=== PATIENT | female | born 1930 | race Caucasian/White ===

== ENCOUNTER 2018-09-23 11:13 | Inpatient (IN) ==
[2018-09-23] MEDS ORDERED: Ondansetron 4 MG/2 ML VIAL IVP ONE (11:19)
[2018-09-23] MEDS ORDERED: Isovue-370 500 ML INFUS..BTL IV ONE (11:34)
[2018-09-23] MEDS ORDERED: 0.9 % Sodium Chloride 1,000 ML IVC ONE (11:34)
--- NOTE | 2018-09-23 11:40 | Emergency Department Note ---
Disposition Clinical Impression: Endoleak of aortic graft Sepsis Qualifiers: Sepsis type: sepsis due to unspecified organism Qualified Code(s): A41.9 - Sepsis, unspecified organism Postoperative seroma Qualifiers: Surgical complication system/body Area: circulatory system Procedure type: ot her circulatory Qualified Code(s): I97.648 - Postprocedural seroma of a cir culatory system organ or structure following other circulatory system procedure Disposition: Admitted As Inpatient Condition: Good Referrals: Deng Munoz Jr, MD [Primary Care Provider] - Forms: ED Satisfaction Letter, Work/School Release Time of Disposition: 15:17 General Adult HPI - General Chief complaint: ED Abdominal Pain Stated complaint: Abdominal Pain Time Seen by Provider: 09/23/18 11:16 Source: patient, family Mode of arrival: ambulatory Limitations: no limitations Nursing Notes Reviewed: Yes Vital Signs Reviewed: Yes - History of Present Illness HPI Narrative: 87 year old female presents to the ED with complaints of abdominal pain that is ventral and states that she most recently had a AAA repair per Dr. Graham on July 10 and has bene doing well until the past couple of week and has dveloepd midline abodminal pain that radiates into the lower abodmen. Today she develoepd N/V which was NBNB. Dee states that this si af rist time occurance and when EMS arrived she had a temperaature of 101F, and she has a low grade 100F oral tmep which makes her concerning for SIRS. Ian denies diarrhea or constipation, cough, UTI symptoms or any bloody in her stool or urine. PAstinet state that is her generalized pain that is crampy in nature. Dee also had a fall yesterday but did not injure her head or neck and did have LOC and state she does not have injuries of concern. Dee denies chest pain at this time. - Related Data Home Medications Medication Instructions Recorded Confirmed Atorvastatin [Lipitor] 10 mg PO HS #0 09/03/15 09/23/18 Lisinopril [Zestril] 10 mg PO DAILY 11/14/17 09/23/18 Metoprolol [Lopressor] 25 mg PO BID 11/14/17 09/23/18 Acetaminophen/Diphenhydramine 1 tab PO HS PRN 07/10/18 09/23/18 [Acetaminophen Pm Caplet] Aspirin Enteric Coated [Aspirin EC] 81 mg PO DAILY 07/10/18 09/23/18 Ibuprofen [Motrin] 400 - 600 mg PO Q6HR PRN 07/10/18 09/23/18 Allergies Allergy/AdvReac Type Severity Reaction Status Date / Time No Known Allergies Allergy Verified 07/10/18 06:37 Constitutional: Denies: fever, chills, weakness, weight change Eyes: Denies: eye pain, eye discharge, vision change ENT ED: Denies: ear pain, throat pain, dental pain, hearing loss, epistaxis, congestion, dysphagia Cardiovascular: Denies: chest pain, palpitations, dyspnea on exertion, edema, syncope Respiratory: Denies: cough, dyspnea, wheezes, hemoptysis, stridor Gastrointestinal: Reports: abdominal pain, nausea, vomiting. Denies: diarrhea, constipation, hematemesis, melena, hematochezia Genitourinary: Denies: dysuria, frequency, hematuria, discharge Musculoskeletal: Denies: back pain, neck pain, arthralgia, myalgia Integumentary: Denies: rash, abrasion, lesions Neurological: Denies: headache, weakness, numbness, paresthesias, confusion, abnormal gait, vertigo Psychiatric: Denies: anxiety, depression, suicidal thoughts, homicidal thoughts, auditory hallucinations, visual hallucinations Endocrine: Denies: fatigue Hematological/Lymphatic: Denies: easy bleeding, easy bruising Allergic/Immunologic: Denies: facial swelling, urticaria Past Medical History - Past Medical History Medical history: Reports: arthritis, hyperlipidemia, hypertension Surgical history: Reports: no surgical history, hip replacement Psychiatric history: Reports: no psych history [employer]IST history: Reports: no [employer]ANG[employer] SPECIALIST history - Social History Smoking Status: Never smoker Smokeless Tobacco Status: No Alcohol use: Reports: none Drug use: Reports: none Physical Exam - General Limitations: no limitations General appearance: alert, in no apparent distress - Head Head exam: atraumatic, normocephalic, normal inspection - Eye Eye exam: Present: normal appearance, PERRL, EOMI - Expanded Eye Exam Pupils: Bilateral: reactive - ENT ENT exam: normal exam, normal oropharynx, mucous membranes moist - Expanded ENT Exam External ear exam: Present: normal external inspection Mouth exam: Present: normal external inspection Teeth exam: Present: normal inspection Throat exam: Present: normal inspection - Neck Neck exam: Present: normal inspection, full ROM, trachea midline - Chest Chest inspection: Present: normal inspection, symmetric chest wall rise - Respiratory Respiratory exam: Present: normal lung sounds bilaterally - Cardiovascular Cardiovascular exam: Present: regular rate, normal rhythm, normal heart sounds - Abdominal Exam Abdominal exam: Present: soft, tenderness. Absent: Non-Tender, distention, guarding, rebound, rigidity Abdominal tenderness: Present: diffuse, mild - Extremities Exam Extremities exam: Present: normal inspection, full ROM. Absent: tenderness, pedal edema - Expanded Upper Extremity Exam Shoulder exam: Present: normal inspection, full ROM Arm exam: Present: normal inspection, full ROM Elbow exam: Present: normal inspection, full ROM Forearm/Wrist exam: Present: normal inspection, full ROM Hand exam: Present: normal inspection, full ROM Vascular exam: Normal: capillary refill, radial pulse - Expanded Lower Extremity Exam Hip/Pelvis exam: Present: normal inspection, full ROM Upper leg exam: Present: normal inspection, full ROM Knee exam: Present: normal inspection, full ROM Lower leg exam: Present: normal inspection, full ROM Ankle exam: Present: normal inspection, full ROM Foot/toe exam: Present: normal inspection, full ROM Neurovascular/Tendon exam: Absent: motor deficit, sensory deficit, tendon deficit - Back Exam Back exam: Present: normal inspection, full ROM. Absent: tenderness - Neurological Exam Neurological exam: Present: alert, oriented X3 - Expanded Neurological Exam Patient oriented to: Present: person, place, time Coma Scale Eye Opening: Spontaneous Coma Scale Motor Response: Obeys Commands Coma Scale Verbal Response: Oriented Coma Scale Total: 15 - Psychiatric Psychiatric exam: Present: normal affect, normal mood - Skin Skin exam: Present: warm, dry, intact, normal color Course Course Narrative: we will do an abdomial workup wiht CTA abdomne but also follow through with a sepsis criteria and rule out other source of infection such as HCAP or UTI - Reevaluation(s) Reevaluation #1: updated patient on results. She likely has an infection, currenlty searching for the source. Dee has an elevated troponin which could be the result of her AAA surgery although she is not eperincing chest pain. WE are waitinginon CTA chest and abp. zosyn and vanc given for treatment Time: 12:42 - Consultations Consultation #1: discussed case with Dr. Graham who will see dee in consult to drain the seroma and possible source of infection. admit to medicine Time: 15:16 Vital Signs Temperature 100.0 F H 09/23/18 11:25 Pulse Rate 70 09/23/18 11:25 Respiratory Rate 16 09/23/18 11:25 Blood Pressure 179/69 09/23/18 11:25 O2 Sat by Pulse Oximetry 100 09/23/18 11:25 Temperature 100.0 F H 09/23/18 11:25 Pulse Rate 70 09/23/18 11:25 Respiratory Rate 16 09/23/18 11:25 Blood Pressure 179/69 09/23/18 11:25 O2 Sat by Pulse Oximetry 100 09/23/18 11:25 Oxygen Delivery Oxygen Delivery Room Air Medical Decision Making - Medical Records Medical records reviewed: Yes I reviewed the patient's medical records. - Lab Data Lab results reviewed: Yes I reviewed the patient's lab results. Result diagrams: 09/23/18 11:49 09/23/18 11:49 Lab Results 09/23/18 09/23/18 09/23/18 Range/Units 11:49 11:49 11:49 WBC 19.7 H (4.3-11.1) K/mcL RBC 3.80 L (3.82-4.97) M/mcL Hgb 11.0 L (11.5-15.4) g/dL Hct 33.3 L (35.3-44.9) % MCV 87.6 (83.0-100.0) fL MCH 28.9 (28.0-33.3) pg MCHC 33.0 (31.6-35.5) g/dL RDW 12.5 (11.5-14.5) % Plt Count 241 (140-400) K/mcL MPV 9.0 L (9.4-12.4) fL Immature Gran % 0.7 (0-4) % Seg Neutrophils % 86.2 % Lymphocytes % 3.5 % Monocytes % 9.4 % Eosinophils % 0.0 % Basophils % 0.2 % Neutrophils # 17.0 H (1.6-8.9) K/mcL Lymphocytes # 0.7 (0.6-4.6) K/mcL Monocytes # 1.9 H (0.0-1.3) K/mcL Eosinophils # 0.0 (0.0-0.6) K/mcL Basophils # 0.0 (0.0-0.2) K/mcL PT 12.6 H (9.4-12.1) Seconds INR 1.1 APTT 35.3 (26.0-36.0) Seconds Sodium 136 (136-145) mEq/L Potassium 3.8 (3.5-5.1) mEq/L Chloride 101 (98-107) mEq/L Carbon Dioxide 25 (23-29) mEq/L BUN 19 (8-23) mg/dL Creatinine 1.02 (0.60-1.20) mg/dL Est GFR ( Amer) > 60 (> 60) Est GFR (Non-Af Amer) 51 L (> 60) BUN/Creatinine Ratio 19 (6-26) Glucose 104 (70-105) mg/dL Calculated Osmolality 285 (280-300) Lactic Acid (0.5-2.2) mmol/L Calcium 9.5 (8.6-10.3) mg/dL Phosphorus (2.7-4.5) mg/dL Magnesium (1.6-2.6) mg/dL Total Bilirubin 0.8 (0.3-1.0) mg/dL Direct Bilirubin 0.2 (0.0-0.2) mg/dL Indirect Bilirubin 0.6 (0.0-1.2) mg/dL AST 17 (13-39) Units/L ALT 8 (7-52) Units/L Alkaline Phosphatase 75 (34-104) Units/L Troponin I 0.38 H* (< 0.04) ng/mL Serum Total Protein 7.5 (6.4-8.9) g/dL Albumin 3.7 (3.5-5.7) g/dL Globulin 3.8 H (2.4-3.5) g/dL Albumin/Globulin Ratio 1.0 L (1.1-2.2) Lipase 10 L (11-82) Units/L Urine Color (Yellow) Urine Clarity (Clear) Urine pH (5.0-8.0) pH Units Ur Specific [place] (1.010-1.025) Urine Protein (Neg-Trace) mg/dL Urine Glucose (UA) (Normal) mg/dL Urine Ketones (Negative) mg/dL Urine Blood (Negative) Urine Nitrite (Negative) Urine Bilirubin (Negative) Urine Urobilinogen (Normal) mg/dL Ur Leukocyte Esterase (Negative) Urine Microscopic RBC (0-3) per hpf Urine Microscopic WBC (0-3) per hpf Ur Squamous Epith Cells (None-Few) per lpf Urine Bacteria (None-Few) per hpf Hyaline Casts (None-Few) per lpf Ur Culture Indicated? (NO) 09/23/18 09/23/18 09/23/18 Range/Units 11:49 11:49 14:20 WBC (4.3-11.1) K/mcL RBC (3.82-4.97) M/mcL Hgb (11.5-15.4) g/dL Hct (35.3-44.9) % MCV (83.0-100.0) fL MCH (28.0-33.3) pg MCHC (31.6-35.5) g/dL RDW (11.5-14.5) % Plt Count (140-400) K/mcL MPV (9.4-12.4) fL Immature Gran % (0-4) % Seg Neutrophils % % Lymphocytes % % Monocytes % % Eosinophils % % Basophils % % Neutrophils # (1.6-8.9) K/mcL Lymphocytes # (0.6-4.6) K/mcL Monocytes # (0.0-1.3) K/mcL Eosinophils # (0.0-0.6) K/mcL Basophils # (0.0-0.2) K/mcL PT (9.4-12.1) Seconds INR APTT (26.0-36.0) Seconds Sodium (136-145) mEq/L Potassium (3.5-5.1) mEq/L Chloride (98-107) mEq/L Carbon Dioxide (23-29) mEq/L BUN (8-23) mg/dL Creatinine (0.60-1.20) mg/dL Est GFR ( Amer) (> 60) Est GFR (Non-Af Amer) (> 60) BUN/Creatinine Ratio (6-26) Glucose (70-105) mg/dL Calculated Osmolality (280-300) Lactic Acid 1.0 (0.5-2.2) mmol/L Calcium (8.6-10.3) mg/dL Phosphorus 2.7 (2.7-4.5) mg/dL Magnesium 1.9 (1.6-2.6) mg/dL Total Bilirubin (0.3-1.0) mg/dL Direct Bilirubin (0.0-0.2) mg/dL Indirect Bilirubin (0.0-1.2) mg/dL AST (13-39) Units/L ALT (7-52) Units/L Alkaline Phosphatase (34-104) Units/L Troponin I (< 0.04) ng/mL Serum Total Protein (6.4-8.9) g/dL Albumin (3.5-5.7) g/dL Globulin (2.4-3.5) g/dL Albumin/Globulin Ratio (1.1-2.2) Lipase (11-82) Units/L Urine Color Yellow (Yellow) Urine Clarity Clear (Clear) Urine pH 6.5 (5.0-8.0) pH Units Ur Specific [place] 1.029 H (1.010-1.025) Urine Protein 30 H (Neg-Trace) mg/dL Urine Glucose (UA) Normal (Normal) mg/dL Urine Ketones Trace H (Negative) mg/dL Urine Blood Trace H (Negative) Urine Nitrite Negative (Negative) Urine Bilirubin Negative (Negative) Urine Urobilinogen Normal (Normal) mg/dL Ur Leukocyte Esterase Moderate H (Negative) Urine Microscopic RBC 5-15 H (0-3) per hpf Urine Microscopic WBC 5-15 H (0-3) per hpf Ur Squamous Epith Cells Many H (None-Few) per lpf Urine Bacteria Few (None-Few) per hpf Hyaline Casts None Seen (None-Few) per lpf Ur Culture Indicated? NO. A (NO) - Radiology Data Radiology results reviewed: Yes I reviewed the patient's radiology results. - EKG Data EKG #1 EKG attestation: Yes I reviewed and interpreted this EKG. EKG results narrative: NSR with raet o 70. NO STEMI. normla intervals. no change from 09/03/18.
[2018-09-23 12:15] LABS: Basophils % 0.2 %; Hematocrit 33.3 % (35.3-44.9); Immature Granulocytes % 0.7 % (0-4); Lymphocytes # 0.7 K/mcL (0.6-4.6); Lymphocytes % 3.5 %; Mean Corpuscular Hemoglobin 28.9 pg (28.0-33.3); Mean Corpuscular Volume 87.6 fL (83.0-100.0); Monocytes # 1.9 K/mcL (0.0-1.3); Monocytes % 9.4 %; Platelet Count 241 K/mcL (140-400); Red Cell Distribution Width 12.5 % (11.5-14.5); Segmented Neutrophils % 86.2 %
[2018-09-23 12:24] LABS: INR 1.1; Prothrombin Time 12.6 Seconds (9.4-12.1)
[2018-09-23 12:27] LABS: Activated Partial Thrombo Time 35.3 Seconds (26.0-36.0); Troponin I 0.38 ng/mL (< 0.04)
[2018-09-23] MEDS ORDERED: Piperacillin/Tazobactam 3.375 GM in 0.9 % Sodium Chloride Mini Bag 100 ML IVPB ONE (12:29)
[2018-09-23 12:34] LABS: Magnesium 1.9 mg/dL (1.6-2.6); Phosphorous 2.7 mg/dL (2.7-4.5)
[2018-09-23 12:36] LABS: Alanine Aminotransferase 8 Units/L (7-52); Albumin 3.7 g/dL (3.5-5.7); Alkaline Phosphatase 75 Units/L (34-104); Aspartate Amino Transferase 17 Units/L (13-39); BUN/Creatinine Ratio 19 (6-26); Bilirubin,Direct 0.2 mg/dL (0.0-0.2); Bilirubin,Indirect 0.6 mg/dL (0.0-1.2); Bilirubin,Total 0.8 mg/dL (0.3-1.0); Blood Urea Nitrogen 19 mg/dL (8-23); Calcium 9.5 mg/dL (8.6-10.3); Carbon Dioxide 25 mEq/L (23-29); Chloride 101 mEq/L (98-107); Globulin 3.8 g/dL (2.4-3.5); Glucose 104 mg/dL (70-105); Lipase 10 Units/L (11-82); Osmolality,Calculated 285 (280-300); Potassium 3.8 mEq/L (3.5-5.1); Sodium 136 mEq/L (136-145); Total Protein 7.5 g/dL (6.4-8.9); eGFR For Non-African Americans 51 (> 60)
[2018-09-23 14:30] LABS: Bilirubin,Urine Negative (Negative); Blood,Urine Trace (Negative); Clarity,Urine Clear (Clear); Color,Urine Yellow (Yellow); Glucose,Urine (UA) Normal (Normal); Ketones,Urine Trace mg/dL (Negative); Leukocyte Esterase,Urine Moderate (Negative); Nitrite,Urine Negative (Negative); PH,Urine 6.5 pH Units (5.0-8.0); Protein,Urine 30 mg/dL (Neg-Trace); Specific Gravity,Urine 1.029 (1.010-1.025); Urobilinogen,Urine Normal (Normal)
[2018-09-23 14:32] LABS: Bacteria,Urine Few per hpf (None-Few); Hyaline Casts,Urine None Seen per lpf (None-Few); Squamous Epithelial Cell,Urine Many per lpf (None-Few)
[2018-09-23] MEDS ORDERED: Naloxone 0.4 MG/ML INJ IVP PRN (17:02)
[2018-09-23] MEDS ORDERED: Ondansetron ODT 4 MG TAB.RAPDIS SL PRN (17:18)
--- NOTE | 2018-09-23 17:46 | Vascular/Endovasc Consult Note ---
Date of Encounter: 09/23/18 Time of Encounter: 17:15 Assessment and Plan (1) Postoperative seroma Current Visit: Yes Status: Chronic The patient has evidence of a postoperative left groin seroma. The fluids well- circumscribed and appears to be homogeneous in consistency on CT scan. There is no evidence of gas. Examination of the left groin reveals no significant erythema and the skin is intact. Given that the patient has an elevated white blood cell count and was extrinsic a low-grade fever we will plan for incision is then drainage of the seroma tomorrow. The risks, benefits alternatives of the procedure were discussed and all questions were answered. She expressed understanding wishes to proceed. The patient is currently on intravenous antibiotics. Qualifiers: Surgical complication system/body Area: circulatory system Procedure type: other circulatory Qualified Code(s): I97.648 - Postprocedural seroma of a circulatory system organ or structure following other circulatory system procedure (2) AAA (abdominal aortic aneurysm) Current Visit: No Status: Chronic The patient is undergone an endograft repair of abdominal aortic aneurysm in June 2018. Her endograft is patent by CT scan. She is a small type II endoleak arising from the lumbar vessels and middle sacral vessel. There is no indication for intervention and is being followed with a repeat CT scan after discharge. Qualifiers: Presence of rupture: without rupture Qualified Code(s): I71.4 - Abdominal aortic aneurysm, without rupture (3) Hypertension, essential Current Visit: No Status: Chronic The patient was counseled regarding atherosclerotic risk factor reduction. (4) Hyperlipemia, mixed Current Visit: No Status: Chronic (5) Chronic kidney disease, stage 3 Current Visit: No Status: Chronic - History of Present Illness Consult date: 09/23/18 Requesting physician: Chimoa Johnson Consult reason: Left groin seroma History of present illness: Ms. Perez is a 87 year old female with a history of chronic kidney disease, hypertension, mixed hyperlipidemia and chronic anemia. The patient has a history of an abdominal aortic aneurysm and underwent endograft repair of her aneurysm in 07/09/2018. The patient tolerated the procedure well and was discharged on postoperative day #1. She was last seen in the office on 08/22/2018. At that time she was doing well. She presented to the emergency room today with complaints of nausea vomiting abdominal pain. As part evaluation with CT angiogram of the abdomen and pelvis. The left groin fluid collection was noted to be consistent with a seroma. Vascular surgery was counseled for further evaluation. At the time of evaluation patient reports that she was feeling well until yesterday. She denies significant inguinal pain. She denies chest pain or shortness of breath. Past Med Surg Social Fam HX - Past Medical History Medical history: arthritis, hyperlipidemia, hypertension Additional medical history: AAA Psychiatric history: no psych history - Past Surgical History Surgical History: no surgical history, hip replacement Additional surgical history: right breast bx, AAA Repair - Social History Smoking Status: Never smoker Smokeless Tobacco Status: No Alcohol use: none Drug use: none - Family History Mother Living Status: Medications and Allergies RX: Atorvastatin [Lipitor] 10 mg PO HS #0 09/03/15 [History] RX: Lisinopril [Zestril] 10 mg PO DAILY 11/14/17 [History] RX: Metoprolol [Lopressor] 25 mg PO BID 11/14/17 [History] RX: Acetaminophen/Diphenhydramine [Acetaminophen Pm Caplet] 1 tab PO HS PRN 07/10/18 [History] RX: Aspirin Enteric Coated [Aspirin EC] 81 mg PO DAILY 07/10/18 [History] RX: Ibuprofen [Motrin] 400 - 600 mg PO Q6HR PRN 07/10/18 [History] Allergy/AdvReac Type Severity Reaction Status Date / Time No Known Allergies Allergy Verified 07/10/18 06:37 All Systems Review: The remainder of the systems were reviewed and are negative Exam Vital Signs, Last 4 Hours Temp Pulse Resp BP Pulse Ox 09/23/18 17:17 99.0 F 69 18 185/73 96 09/23/18 16:50 14 115/55 09/23/18 15:33 100.0 F H 64 16 143/55 95 09/23/18 15:21 64 16 143/55 95 General: Present: Conversant, No Apparent Distress HEENT: Present: Pupils equal Neck: Absent: JVD, Lymphadenopathy Cardiac: Present: Reg Rate and Rhythm, Normal S1 and S2 Lungs: Present: Normal Breath Sounds, No Wheeze, Rales, Rhonchi Neuro: Present: Alert and responsive, No focal deficits noted, Motor nerves grossly intact, Sensory nerves grossly intact Abdomen: Present: Soft, Other (No rebound or guarding) Vascular: Present: Normal capillary refill, Surgical incisions (The bilateral inguinal incisions are well-healed. There is no surrounding erythema. There is no significant induration of the left groin, and on pulsatile mass can be palpated in the left groin). Absent: Cyanosis, Edema Consult Discharge Plan - Plan Referrals: Huy Graham MD [Partnered Physician] - 10/28/18 3:30 pm Deng Munoz Jr, MD [Primary Care Provider] - 10/07/18 11:30 am
--- NOTE | 2018-09-23 18:30 | Internal Med History&Physical ---
Date of Encounter: 09/23/18 Time of Encounter: 17:30 Internal Medicine - H&P: HPI Chief complaint: Possible early sepsis. Seroma of left groin area. Admitted From: Home Plans for Post Hospital Care: Home History of present illness: The patient is an 87-year-old woman. It was today morning around 8 AM, when she vomited a few times at the time of her breakfast. About 15 minutes later she passed out, when leaning over/reaching for something. It was a very short lasting/observed by her daughter. There was no seizure activity. She was continent with of urine and stool. The patient felt very weak when regaining c onsciousness. Subsequently, her daughter called for EMS. The patient felt normal self yesterday. She has not experienced any chest pain or difficulty breathing recently. Denies coughing and wheezing. She has normal bowel movements. She has normal urination. She feels cold. However, she has not experienced any chills. Her temperature was 100.0, when checked in the emergency room after the admission. This patient had endovascular repair of AAA in our hospital on 07/10/2018. She has not experienced any complications after the surgery. She has had some feeling of fullness in her left groin for the last couple weeks. PAST MEDICAL HX: The patient has been treated for hypertension and hyperlipidemia. She had endovascular repair of AAA in our hospital in June of this year (see above). REVIEW OF SYSTEMS: All 14 organ systems were reviewed by me with the patient. Positive and perti nent negative findings are listed above. The rest of organ systems is negative. PHYSICAL EXAM: Skin: Free of rash and discoloration. Eyes: Sclera is white. There is no discharge from eyes. ENMT: Oral/pharyngeal mucosa is normal in appearance. There is no discharge from nose or ears. Respiratory: Normal breath sounds with no crackles and wheezes bilaterally. CV: Heart is regular with no gallop or murmur. GI: Abdomen is flat and soft with no palpable mass or visceromegaly. : There is no tenderness in patient's flanks bilaterally. Neuro exam: He has good strength in upper and lower extremities. He has normal eye movements. Psychiatric: He has normal affect. His thought process is appropriate to the situation. ADDITIONAL DATA: CBC shows hemoglobin of 11.0 with WBC of 19.7 thousand and platelet count of 241,000. ABG shows a random glucose of 104 and normal electrolytes. She has n ormal liver function tests. Hepatic panel/lipase are normal, too. UA shows moderate amount of leukocyte esterase; is negative for nitrite. It has 5-15 microscopic WBC in sediment. Her first creatinine was 0 point at 38; repeated 4 hours later was 0.020. EKG from the emergency showed normal sinus rhythm with no ischemia or other abnormalities. CTA vascular was obtained. It showed large fluid collection in the region of the left common femoral artery measuring 5.8 x 5.2 centimeter. They are endovascular repair of AAA seems to be stable. A/P: Syncope. Likely vasovagal. The patient may have early/developing sepsis. I am requesting lactic acid. I discussed this case with infectious diseases. We will keep this patient on IV vancomycin/IV Zosyn. She may have infected fluid in the area of left groin or some other source of infection. Blood cultures are requested. Vascular surgery consult is requested. Hypertension. Under control. We will continue Lopressor and Zestril. Hyperlipidemia. We will continue Lipitor. AAA. Got endovascular repair in June of this year. Seems to be stable at this time. Past Med Surg Social Fam HX - Past Medical History Medical history: arthritis, hyperlipidemia, hypertension Additional medical history: AAA Psychiatric history: no psych history - Past Surgical History Surgical History: no surgical history, hip replacement Additional surgical history: right breast bx, AAA Repair - Social History Smoking Status: Never smoker Smokeless Tobacco Status: No Alcohol use: none Drug use: none - Family History Mother Living Status: Internal Medicine - H&P: Meds Atorvastatin [Lipitor] 10 mg PO HS #0 09/03/15 [History] Lisinopril [Zestril] 10 mg PO DAILY 11/14/17 [History] Metoprolol [Lopressor] 25 mg PO BID 11/14/17 [History] Acetaminophen/Diphenhydramine [Acetaminophen Pm Caplet] 1 tab PO HS PRN 07/10/18 [History] Aspirin Enteric Coated [Aspirin EC] 81 mg PO DAILY 07/10/18 [History] Ibuprofen [Motrin] 400 - 600 mg PO Q6HR PRN 07/10/18 [History] Allergy/AdvReac Type Severity Reaction Status Date / Time No Known Allergies Allergy Verified 07/10/18 06:37 - Constitutional Vitals: Temp Pulse Resp BP Pulse Ox 99.0 F 69 18 185/73 96 09/23/18 17:17 09/23/18 17:17 09/23/18 17:17 09/23/18 17:17 09/23/18 17:17 General appearance: Present: A&O X 3, no acute distress, answers questions appropriately Exam: xx Internal Med - H&P Results - Labs CBC & Chem 7: 09/23/18 11:49 09/23/18 11:49 Labs: Short CBC 09/23/18 Range/Units 11:49 WBC 19.7 H (4.3-11.1) K/mcL Hgb 11.0 L (11.5-15.4) g/dL Hct 33.3 L (35.3-44.9) % Plt Count 241 (140-400) K/mcL Neutrophils # 17.0 H (1.6-8.9) K/mcL BMP 09/23/18 11:49 Sodium 136 Potassium 3.8 Chloride 101 Carbon Dioxide 25 BUN 19 Creatinine 1.02 Glucose 104 Calcium 9.5 Cardiac Enzymes 09/23/18 09/23/18 Range/Units 11:49 16:47 Troponin I 0.38 H* 0.20 H* (< 0.04) ng/mL Liver Function 09/23/18 Range/Units 11:49 Total Bilirubin 0.8 (0.3-1.0) mg/dL Direct Bilirubin 0.2 (0.0-0.2) mg/dL AST 17 (13-39) Units/L ALT 8 (7-52) Units/L Alkaline Phosphatase 75 (34-104) Units/L Albumin 3.7 (3.5-5.7) g/dL Urine 09/23/18 Range/Units 14:20 Urine Color Yellow (Yellow) Urine Clarity Clear (Clear) Urine pH 6.5 (5.0-8.0) pH Units Ur Specific [place] 1.029 H (1.010-1.025) Urine Protein 30 H (Neg-Trace) mg/dL Urine Glucose (UA) Normal (Normal) mg/dL - Impressions ITS Impressions Abdomen/Pelvis CTA 09/23/18 11:34 IMPRESSION: 1. Status post endovascular repair of the abdominal aorta. Aneurysm sac is stable since May 2018, measuring up to 5.9 cm. 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 2. Large fluid collection identified in the left groin which may represent a postoperative seroma, measuring 5.8 x 5.2 cm. 3. No acute intrathoracic abnormality. 4. Diverticulosis. D/ / 09/23/2018 14:49:30 Kina Gallegos MD / michelle Interpreting Provider: Kina Gallegos MD Chest CTA 09/23/18 11:34 IMPRESSION: 1. Status post endovascular repair of the abdominal aorta. Aneurysm sac is stable since May 2018, measuring up to 5.9 cm. 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 2. Large fluid collection identified in the left groin which may represent a postoperative seroma, measuring 5.8 x 5.2 cm. 3. No acute intrathoracic abnormality. 4. Diverticulosis. D/ / 09/23/2018 14:49:30 Kina Gallegos MD / michelle Interpreting Provider: Kina Gallegos MD - Assessment and plan (1) Syncope Current Visit: No Status: Acute Qualifiers: Syncope type: vasovagal syncope Qualified Code(s): R55 - Syncope and collapse (2) Sepsis Current Visit: Yes Status: Suspected Qualifiers: Sepsis type: sepsis due to unspecified organism Qualified Code(s): A41.9 - Sepsis, unspecified organism (3) Seroma after procedure Current Visit: Yes Status: Acute (4) HTN (hypertension) Current Visit: Yes Status: Chronic Qualifiers: Hypertension type: essential hypertension Qualified Code(s): I10 - Essential (primary) hypertension (5) HLD (hyperlipidemia) Current Visit: Yes Status: Acute Qualifiers: Hyperlipidemia type: unspecified Qualified Code(s): E78.5 - Hyperlipidemia, unspecified - Time Spent With Patient Total time spent is greater than 50% in coordination of care (as documented) at patient's floor/unit and/or counseling patient: 25 - 35 minutes - VTE Reasons for not Prescribing Prophylaxis: Treatment not Indicated - Low risk for VTE
[2018-09-23] MEDS: 0.9 % Sodium Chloride 1,000 ML IVC SCH (19:45)
[2018-09-23] MEDS: Piperacillin/Tazobactam 3.375 GM in 0.9 % Sodium Chloride Mini Bag 100 ML IVPB SCH (21:27)
[2018-09-24] MEDS: Piperacillin/Tazobactam 3.375 GM in 0.9 % Sodium Chloride Mini Bag 100 ML IVPB SCH ×3 (03:57→20:11)
[2018-09-24 04:15] LABS: Basophils % 0.1 %; Eosinophils % 0.2 %; Hematocrit 29.6 % (35.3-44.9); Hemoglobin 9.7 g/dL (11.5-15.4); Immature Granulocytes % 0.5 % (0-4); Lymphocytes # 1.5 K/mcL (0.6-4.6); Lymphocytes % 8.5 %; Mean Corpuscular HGB Conc 32.8 g/dL (31.6-35.5); Mean Corpuscular Hemoglobin 28.9 pg (28.0-33.3); Mean Corpuscular Volume 88.1 fL (83.0-100.0); Mean Platelet Volume 9.1 fL (9.4-12.4); Monocytes # 2.3 K/mcL (0.0-1.3); Monocytes % 12.4 %; Neutrophils # 14.3 K/mcL (1.6-8.9); Platelet Count 217 K/mcL (140-400); Red Blood Count 3.36 M/mcL (3.82-4.97); Red Cell Distribution Width 12.7 % (11.5-14.5); Segmented Neutrophils % 78.3 %
[2018-09-24 04:31] LABS: Calcium 8.6 mg/dL (8.6-10.3); Magnesium 1.9 mg/dL (1.6-2.6); Potassium 3.9 mEq/L (3.5-5.1)
[2018-09-24 04:37] LABS: Troponin I 0.09 ng/mL (< 0.04)
[2018-09-24] MEDS ORDERED: Aspirin Enteric Coated 81 MG Tablet PO SCH (09:00)
[2018-09-24] MEDS: 0.9 % Sodium Chloride 1,000 ML IVC SCH ×2 (14:08→23:32)
--- NOTE | 2018-09-24 14:47 | Infectious Disease Consult ---
Date of Encounter: 09/24/18 Time of Encounter: 14:36 Assessment and Plan (1) Chronic kidney disease, stage 3 Status: Chronic (2) Sepsis Status: Suspected Assessment and plan: The patient had two SIRS criteria on admission. Etiology unclear: infected seroma vs. other. Improved clinically. WBC trending down. Afebrile overnight. Blood cultures drawn 09/23/18 are NGTD x 2 sets. Recommendations: - Wound care per the Vascular team. - Continue Vancomycin IV. Pharmacy to dose. Goal trough ~15. - Continue Zosyn 3.375 grams IV Q8H. - Duration of treatment depends on the clinical picture. - Monitor renal function and for drug toxicity and dose-adjust antibiotics. Qualifiers: Sepsis type: sepsis due to unspecified organism Qualified Code(s): A41.9 - Sepsis, unspecified organism (3) Postoperative seroma Status: Chronic Assessment and plan: Location: Left groin. Likely secondary to recent AAA repair. CTA of the abdomen and pelvis showed "status post endovascular repair of the abdominal aorta. Aneurysm sac is stable since May 2018, measuring up to 5.9 cm. 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 Large fluid collection identified in the left groin which may represent a postoperative seroma, measuring 5.8 x 5.2 cm. No acute intrathoracic abnormality. Diverticulosis." Vascular surgery consulted. Status post I & D of the left groin seroma 09/24/[address] Graham. Operative note reviewed. Serous fluid noted, no pus. 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 left groin area seroma History of present illness: Ms. Perez is a 87 year old female Patient is an 87-year-old woman who presented to [facility] on 09/23/2018 with vomiting and just feeling ill to her stomach and a syncopal episode. We are consult did for early sepsis and antibiotic recommendations. Patient is an 87-year-old woman with past medical history including arthritis, hyperlipidemia and hypertension who has history of abdominal aortic aneurysm underwent an endovascular repair of abdominal aortic aneurysm using a Cook Zenith stent grafts system on 07/10/[address] ramos. Patient appears to be doing well post op. Patient apparently on day of admission was having nausea vomiting and had a syncopal episode so she was brought by her family. Since admission, patient has been febrile with MAXIMUM TEMPERATURE of 100 Fahrenheit, no tachycardia, no tachypnea and hemodynamically stable. Presenting labs revealed a WBC of 19.7 with 86% neutrophils no banned. Patient's chemistry revealed BUN of 19 creatinine 1.02, normal lactic acid at 1.0 and normal LFTs. Patient did have a mild troponin leak. A lipase was checked and it came back 10. Patient had a urinalysis which showed some pyuria and moderate leukocyte esterase by had also many squamous epithelial cells and no culture was indicated. Blood cultures were obtained 2. A CT angiogram of the abdomen and pelvis reveals " S/P endovascular repair of the abdominal aorta. Aneurysm sac is stable since May 2018, measuring up to 5.9 cm. 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 Large fluid collection identified in the left groin which may represent a postoperative seroma, measuring 5.8 x 5.2 cm. No acute intrathoracic abnormality. Diverticulosis." Patient was evaluated by vascular surgery and the CT for that was really not impressive because there was no air in the fluids and it looks like was a homogeneous consistency but because of the fever and leukocytosis they are planning an I&D. Patient just came out of the OR and had I&D done. OP notes mentions serous seroma and no purulence. CC: Logan Gilliland Past Med Surg Social Fam HX - Past Medical History Medical history: arthritis, hyperlipidemia, hypertension Additional medical history: AAA Psychiatric history: no psych history - Past Surgical History Surgical History: no surgical history, hip replacement Additional surgical history: right breast bx, AAA Repair - Social History Smoking Status: Never smoker Smokeless Tobacco Status: No Alcohol use: none Drug use: none - Family History Mother Living Status: Infectious Disease-CN:Meds RX: Atorvastatin [Lipitor] 10 mg PO HS #0 09/03/15 [History] RX: Lisinopril [Zestril] 10 mg PO DAILY 11/14/17 [History] RX: Metoprolol [Lopressor] 25 mg PO BID 11/14/17 [History] RX: Acetaminophen/Diphenhydramine [Acetaminophen Pm Caplet] 1 tab PO HS PRN 07/10/18 [History] RX: Aspirin Enteric Coated [Aspirin EC] 81 mg PO DAILY 07/10/18 [History] RX: Ibuprofen [Motrin] 400 - 600 mg PO Q6HR PRN 07/10/18 [History] Allergy/AdvReac Type Severity Reaction Status Date / Time No Known Allergies Allergy Verified 07/10/18 06:37 Review of systems: 10 point review of systems done, negative other for what mentioned in history of present illness Exam - Constitutional Vitals: Temp Pulse Resp BP Pulse Ox 99.1 F 67 18 171/76 95 09/24/18 11:22 09/24/18 11:22 09/24/18 11:22 09/24/18 11:22 09/24/18 11:22 General appearance: no acute distress, no febrile - Head Head exam: Present: atraumatic, normocephalic - Eye Eye exam: Present: EOMI, PERRL, sclera anicteric - ENT ENT exam: Present: mucous membranes moist, normal exam - Neck Neck exam: Present: full ROM. Absent: meningismus - Respiratory Respiratory exam: Present: CTAB. Absent: wheezes - Cardiovascular Cardiovascular exam: Present: RRR, +S1, +S2 - GI/Abdominal GI/Abdominal exam: Present: soft Additional comments: post surgical - Extremities Exam Extremities exam: Present: full ROM. Absent: tenderness - Neurological Exam Neurological exam: Present: alert, oriented X3 Additional comments: lethargic, saw her just directly post op - Skin Skin exam: Present: normal color. Absent: rash Infectious Disease CN: Results - Labs CBC & Chem 7: 09/26/18 08:32 09/26/18 08:32 Cultures: Cultures 09/23/18 11:49 Blood Culture - Preliminary Peripheral Venipuncture Culture is incubating and being continuously monitored for growth. Final report to follow. 09/23/18 11:49 Blood Culture - Preliminary Peripheral Venipuncture Culture is incubating and being continuously monitored for growth. Final report to follow. Serology: Serology 09/23/18 Range/Units 14:20 Urine Color Yellow (Yellow) Urine Clarity Clear (Clear) Urine pH 6.5 (5.0-8.0) pH Units Ur Specific [place] 1.029 H (1.010-1.025) Urine Protein 30 H (Neg-Trace) mg/dL Urine Glucose (UA) Normal (Normal) mg/dL Urine Ketones Trace H (Negative) mg/dL Urine Blood Trace H (Negative) Urine Nitrite Negative (Negative) Urine Bilirubin Negative (Negative) Urine Urobilinogen Normal (Normal) mg/dL Ur Leukocyte Esterase Moderate H (Negative) Urine Microscopic RBC 5-15 H (0-3) per hpf Urine Microscopic WBC 5-15 H (0-3) per hpf Ur Squamous Epith Cells Many H (None-Few) per lpf Urine Bacteria Few (None-Few) per hpf Hyaline Casts None Seen (None-Few) per lpf Ur Culture Indicated? NO. A (NO) - VTE Reasons for not Prescribing Prophylaxis: Treatment not Indicated - Low risk for VTE Consult Discharge Plan - Plan Referrals: Huy Graham MD [Partnered Physician] - 10/28/18 3:30 pm Deng Munoz Jr, MD [Primary Care Provider] - 10/07/18 11:30 am
[2018-09-24] MEDS ORDERED: Ondansetron 4 MG/2 ML VIAL ONE (15:48)
[2018-09-24] MEDS ORDERED: *HR* FentaNYL (PF) 100 MCG/2 ML VIAL ONE (15:48)
[2018-09-24] MEDS ORDERED: Dexamethasone 4 MG/ML VIAL ONE (15:48)
[2018-09-24] MEDS ORDERED: Lidocaine -MPF 2% 2 ML VIAL ONE (15:48)
[2018-09-24] MEDS ORDERED: *HR* Propofol 200 MG/20 ML VIAL IVP ONE (15:49)
--- NOTE | 2018-09-24 16:12 | Anesthesia Evaluation PreOp ---
Date of Encounter: 09/24/18 Time of Encounter: 16:46 - Past History Planned Operation: LEFT GROIN SEROMA INCISION & DRAINAGE Cardiac History: HTN, Hyperlipidemia, Other (ELEVATED TROPONIN,) Pulmonary History: Denies Any Significant HX E [employer] History: Syncope Other Medical History: Other (ANEMIA) Anesthesia History: No Prior Anesthetic Complications, Past Anesthesia (ENDO AAA 07/10/18) Alcohol Use: none Drug use: none Medications and Allergies Atorvastatin [Lipitor] 10 mg PO HS #0 09/03/15 [History] Lisinopril [Zestril] 10 mg PO DAILY 11/14/17 [History] Metoprolol [Lopressor] 25 mg PO BID 11/14/17 [History] Acetaminophen/Diphenhydramine [Acetaminophen Pm Caplet] 1 tab PO HS PRN 07/10/18 [History] Aspirin Enteric Coated [Aspirin EC] 81 mg PO DAILY 07/10/18 [History] Ibuprofen [Motrin] 400 - 600 mg PO Q6HR PRN 07/10/18 [History] Allergy/AdvReac Type Severity Reaction Status Date / Time No Known Allergies Allergy Verified 07/10/18 06:37 - Meds/Allergy Pre-op Review Medications Reviewed: Yes Allergies Reviewed: Yes Beta Blockers on Current Med List: Yes Anesthesia Results - Labs 09/24/18 03:57 09/24/18 03:57 Laboratory Last Values WBC 18.2 K/mcL (4.3-11.1) H 09/24/18 03:57 RBC 3.36 M/mcL (3.82-4.97) L 09/24/18 03:57 Hgb 9.7 g/dL (11.5-15.4) L 09/24/18 03:57 Hct 29.6 % (35.3-44.9) L 09/24/18 03:57 MCV 88.1 fL (83.0-100.0) 09/24/18 03:57 MCH 28.9 pg (28.0-33.3) 09/24/18 03:57 MCHC 32.8 g/dL (31.6-35.5) 09/24/18 03:57 RDW 12.7 % (11.5-14.5) 09/24/18 03:57 Plt Count 217 K/mcL (140-400) 09/24/18 03:57 MPV 9.1 fL (9.4-12.4) L 09/24/18 03:57 Immature Gran % 0.5 % (0-4) 09/24/18 03:57 Seg Neutrophils % 78.3 % 09/24/18 03:57 Lymphocytes % 8.5 % 09/24/18 03:57 Monocytes % 12.4 % 09/24/18 03:57 Eosinophils % 0.2 % 09/24/18 03:57 Basophils % 0.1 % 09/24/18 03:57 Neutrophils # 14.3 K/mcL (1.6-8.9) H 09/24/18 03:57 Lymphocytes # 1.5 K/mcL (0.6-4.6) 09/24/18 03:57 Monocytes # 2.3 K/mcL (0.0-1.3) H 09/24/18 03:57 Eosinophils # 0.0 K/mcL (0.0-0.6) 09/24/18 03:57 Basophils # 0.0 K/mcL (0.0-0.2) 09/24/18 03:57 PT 12.6 Seconds (9.4-12.1) H 09/23/18 11:49 INR 1.1 09/23/18 11:49 APTT 35.3 Seconds (26.0-36.0) 09/23/18 11:49 Sodium 136 mEq/L (136-145) 09/24/18 03:57 Potassium 3.9 mEq/L (3.5-5.1) 09/24/18 03:57 Chloride 105 mEq/L (98-107) 09/24/18 03:57 Carbon Dioxide 23 mEq/L (23-29) 09/24/18 03:57 BUN 22 mg/dL (8-23) 09/24/18 03:57 Creatinine 1.06 mg/dL (0.60-1.20) 09/24/18 03:57 Est GFR ( Amer) 59 (> 60) L 09/24/18 03:57 Est GFR (Non-Af Amer) 49 (> 60) L 09/24/18 03:57 BUN/Creatinine Ratio 21 (6-26) 09/24/18 03:57 Glucose 110 mg/dL (70-105) H 09/24/18 03:57 Calculated Osmolality 286 (280-300) 09/24/18 03:57 Lactic Acid 0.8 mmol/L (0.5-2.2) 09/23/18 16:47 Calcium 8.6 mg/dL (8.6-10.3) 09/24/18 03:57 Phosphorus 2.7 mg/dL (2.7-4.5) 09/23/18 11:49 Magnesium 1.9 mg/dL (1.6-2.6) 09/24/18 03:57 Total Bilirubin 0.8 mg/dL (0.3-1.0) 09/23/18 11:49 Direct Bilirubin 0.2 mg/dL (0.0-0.2) 09/23/18 11:49 Indirect Bilirubin 0.6 mg/dL (0.0-1.2) 09/23/18 11:49 AST 17 Units/L (13-39) 09/23/18 11:49 ALT 8 Units/L (7-52) 09/23/18 11:49 Alkaline Phosphatase 75 Units/L (34-104) 09/23/18 11:49 Troponin I 0.09 ng/mL (< 0.04) H* 09/24/18 03:57 Serum Total Protein 7.5 g/dL (6.4-8.9) 09/23/18 11:49 Albumin 3.7 g/dL (3.5-5.7) 09/23/18 11:49 Globulin 3.8 g/dL (2.4-3.5) H 09/23/18 11:49 Albumin/Globulin Ratio 1.0 (1.1-2.2) L 09/23/18 11:49 Lipase 10 Units/L (11-82) L 09/23/18 11:49 Urine Color Yellow (Yellow) 09/23/18 14:20 Urine Clarity Clear (Clear) 09/23/18 14:20 Urine pH 6.5 pH Units (5.0-8.0) 09/23/18 14:20 Ur Specific [place] 1.029 (1.010-1.025) H 09/23/18 14:20 Urine Protein 30 mg/dL (Neg-Trace) H 09/23/18 14:20 Urine Glucose (UA) Normal mg/dL (Normal) 09/23/18 14:20 Urine Ketones Trace mg/dL (Negative) H 09/23/18 14:20 Urine Blood Trace (Negative) H 09/23/18 14:20 Urine Nitrite Negative (Negative) 09/23/18 14:20 Urine Bilirubin Negative (Negative) 09/23/18 14:20 Urine Urobilinogen Normal mg/dL (Normal) 09/23/18 14:20 Ur Leukocyte Esterase Moderate (Negative) H 09/23/18 14:20 Urine Microscopic RBC 5-15 per hpf (0-3) H 09/23/18 14:20 Urine Microscopic WBC 5-15 per hpf (0-3) H 09/23/18 14:20 Ur Squamous Epith Cells Many per lpf (None-Few) H 09/23/18 14:20 Urine Bacteria Few per hpf (None-Few) 09/23/18 14:20 Hyaline Casts None Seen per lpf (None-Few) 09/23/18 14:20 Ur Culture Indicated? NO. (NO) A 09/23/18 14:20 Laboratory Tests 09/23/18 09/23/18 09/24/18 11:49 16:47 03:57 Troponin I 0.38 H* 0.20 H* 0.09 H* - Imaging Additional studies: STRESS TEST 06/2018: Perfusion imaging was negative for ischemia or infarct. Pharmacologic stress ECG is negative for ischemia at level of heart rate achieved. No appreciable change from baseline ECG. Gated EF > 70%.. Anesthesia Exam Vital Signs/O2 Sat/Glucose, Most Recent Temp Pulse Resp BP Pulse Ox 98.9 F 70 17 180/75 94 09/24/18 15:00 09/24/18 15:00 09/24/18 15:00 09/24/18 15:00 09/24/18 15:00 Weight: 67 KG - BMI 25 NPO (# of Hours): 8 - HEENT Mallampati: I Teeth: Missing Denture Type: Upper: Partial Oral Opening: Greater than 3 - Cardiac Rhythm: Regular - Pulmonary Breath Sounds: bilateral Clear Respiratory Effort: Symmetrical - Additional Findings Active Medications Acetaminophen (Tylenol) 500 mg PO Q6HR PRN PRN Reason: Pain Stop: 03/25/19 17:15 Last Admin: 09/23/18 19:43 Dose: 500 mg Aspirin (Aspirin Ec) 81 mg PO DAILY [facility] Stop: 03/26/19 09:01 Last Admin: 09/24/18 08:24 Dose: 81 mg Atorvastatin Calcium (Lipitor) 10 mg PO HS [facility] Stop: 03/25/19 21:01 Last Admin: 09/23/18 19:43 Dose: 10 mg Piperacillin Sod/Tazobactam (Sod 3.375 gm/ Sodium Chloride) 100 mls @ 25 mls/hr IVPB Q8H [facility] Stop: 03/25/19 20:01 Last Infusion: 09/24/18 15:46 Dose: Infused Vancomycin HCl 1,000 mg/ (Sodium Chloride) 250 mls @ 167 mls/hr IVPB Q24H [facility]; Protocol Stop: 03/25/19 20:01 Last Infusion: 09/23/18 22:50 Dose: Infused Lisinopril (Zestril) 10 mg PO DAILY [facility]; Protocol Stop: 03/26/19 09:01 Last Admin: 09/24/18 08:24 Dose: 10 mg Metoprolol Tartrate (Lopressor) 25 mg PO BID [facility] Stop: 03/25/19 21:01 Last Admin: 09/24/18 08:24 Dose: 25 mg Anesthesia Assess/Plan ASA Score: 3 Anesthetic Plan: General Monitoring Plan: Standard Monitors Recovery Plan: PACU Anes Supervising Prov Stmt: Patient informed and consented. Risks, benefits, and alternatives discussed. Patient wishes to proceed.
[2018-09-24] MEDS ORDERED: CeFAZolin Syr 2,000MG/20 ML 2,000 MG/20 ML SYRINGE IVPB ONE (17:17)
[2018-09-24] MEDS ORDERED: *HR* Morphine 2 MG/ML SYRINGE IVP PRN (18:01)
[2018-09-24] MEDS ORDERED: *HR* OxyCODONE Immed Rel 5 MG TABLET PO PRN ×2 (18:01→18:38)
--- NOTE | 2018-09-24 18:21 | Operative Note ---
Date of procedure: 09/24/18 Pre-op diagnosis: Left groin seroma Post-op diagnosis: same Procedure: 1. Incision and drainage of left groin seroma. Complications: None Anesthesia: GETA Surgeon: Huy Graham Was there an information assistant present: No Estimated blood loss (cc): 10 Specimen: None Condition: stable Disposition: PACU Procedure in Detail: Indications: The patient is an 87-year-old female who previously underwent endograft repair of an abdominal aortic aneurysm. The patient presented to the emergency room on 09/23/2018 with an elevated white blood cell count a low-grade fever, nausea and vomiting. A CT scan was performed which revealed left groin homogeneous fluid collection consistent with seroma. Given her presentation with an unidentified source of infection. Drainage of the fluid collection was warranted. Procedure: The patient was identified in the prep and very. The risks, benefits and alternatives were discussed and all questions were answered. The patient was taken operating room and placed in the supine position on the operating table. After the induction of general endotracheal anesthesia she was cleaned and draped in normal sterile fashion. Previous scar was opened sharply. Hemostasis was obtained with electrocautery. Through a process of blunt, sharp R dissection the fluid cavity was identified and entered. Clear, serous fluid was drained. There is no evidence of purulence, no evidence of bleeding, no evidence of abscess or infection. The findings were consistent with a seroma. The seroma was drained. The wound was irrigated with antibiotic containing saline. Meticulous hemostasis was obtained throughout the wound with electrocautery. Small lymphatic vessels were cut cauterized as well. The seroma cavity was reapproximated with a running 2-0 Vicryl. The wound was then reapproximated with a running 2-0 Vicryl, 3 layers of running 3-0 Vicryl and a layer of 3-0 Monocryl in the skin. A sterile dressing was then applied. The patient was then extubated and taken to the recovery room in stable condition.
[2018-09-24] MEDS ORDERED: Naloxone 0.4 MG/ML INJ IVP PRN (18:38)
[2018-09-24] MEDS ORDERED: Acetaminophen 325 MG TABLET PO PRN (18:38)
[2018-09-24] MEDS: *HR* HYDROcodone/Acet 5/325 mg TABLET PO PRN (20:08)
--- NOTE | 2018-09-24 20:47 | Anesthesia Evaluation Post Op ---
Date of Encounter: 09/24/18 Time of Encounter: 18:30 - Discharge PostOp Status: Transfer Patient to floor (Patient's vital signs have been reviewed. Patient is stable postoperatively and has adequately recovered from anesthesia. Patient is determined to have stable airway patency and respiratory function including respiratory rate and oxygen saturation. Patient has a stable heart rate, blood pressure and adequate hydration. Patients mental status is acceptable. Patients temperature is appropriate. Pain and nausea are adequately controlled.)
--- NOTE | 2018-09-24 20:48 | Electrocardiograph Report ---
[facility] Test Date: 2018-09-23 Pat Name: Kaykay Perez Department: EXAM7 Room: 2N07 Gender: F Mediator: : 1930 Requested By: Chioma Johnson Order Number: [id number] Reading MD: Quita Novak Measurements Intervals [place] Rate: 70 P: 45 MA: 192 QRS: -24 QRSD: 96 T: 42 QT: 402 QTc: 434 Interpretive Statements Sinus rhythm Probable left ventricular hypertrophy Electronically Signed On 09-24-2018 20:46:21 EST by Quita Novak
--- NOTE | 2018-09-24 22:21 | Internal Med Progress Note ---
Hospitalist Progress Note - Encounter Date of Encounter: 09/24/18 Time of Encounter: 19:00 - Subjective Interval History: SUBJECTIVE: The patient feels good. She continues to have a feeling of fullness in the left groin area. Otherwise, she does not have any other symptoms. Her fever observed yesterday subsided. She denies having chills. OBJECTIVE: Skin: Free of rash and discoloration. ENMT: Oral/pharyngeal mucosa is normal in appearance. Eyes: Sclera is white. There is no discharge from eyes. Respiratory: Normal breath sounds; no crackles or wheezes. CV: Heart is regular; no gallop or murmur. GI: Abdomen is soft and not tender. There is no palpable mass or visceromegaly. Neuro: There is no focal deficits. ADDITIONAL DATA: WBC is 18.2 thousand; 19.7 thousand yesterday. Hemoglobin is 9.7; 11.0 yesterday. She has normal electrolytes. Creatinine is 1.06. Her troponin was checked on 3 occasions: 0.38, 0.20 and 0.09. EKG was done yesterday: normal. ASSESSMENT AND PLAN: Syncope. Likely vasovagal. Triggered by a few episodes of vomiting. She had a fever, vomiting and leukocytosis yesterday. She continues to have leukocytosis today. Seroma in the left groin area. Secondary to endovascular treatment of AAA. She will have incision and drainage of that problem today. The fluid will be cultured. Hypertension. Under control. We will continue Lopressor and Zestril. Hyperlipidemia. We will continue Lipitor. - Exam Vitals: Temp Pulse Resp BP Pulse Ox 98.9 F 76 18 152/70 92 09/24/18 18:45 09/24/18 19:15 09/24/18 18:45 09/24/18 19:15 09/24/18 19:15 Exam: xx - Assessment and Plan (1) Syncope Current Visit: No Status: Acute (2) Sepsis Current Visit: Yes Status: Suspected (3) Seroma after procedure Current Visit: Yes Status: Acute (4) HTN (hypertension) Current Visit: Yes Status: Chronic (5) HLD (hyperlipidemia) Current Visit: Yes Status: Acute - Time Spent with Patient Total time spent is greater than 50% in coordination of care (as documented) at patient's floor/unit and/or counseling patient: 25 - 35 minutes Plan of Care Discussed with: patient Internal Medicine: Result - Labs CBC & Chem 7: 09/24/18 03:57 09/24/18 03:57 Labs: Short CBC 09/24/18 Range/Units 03:57 WBC 18.2 H (4.3-11.1) K/mcL Hgb 9.7 L (11.5-15.4) g/dL Hct 29.6 L (35.3-44.9) % Plt Count 217 (140-400) K/mcL Neutrophils # 14.3 H (1.6-8.9) K/mcL BMP 09/24/18 03:57 Sodium 136 Potassium 3.9 Chloride 105 Carbon Dioxide 23 BUN 22 Creatinine 1.06 Glucose 110 H Calcium 8.6 Cardiac Enzymes 09/24/18 Range/Units 03:57 Troponin I 0.09 H* (< 0.04) ng/mL - ABG Interpretation ABG results: PT/INR, D-dimer PT 12.6 Seconds (9.4-12.1) H 09/23/18 11:49 - VTE Reasons for not Prescribing Prophylaxis: Treatment not Indicated - Low risk for VTE Consult Discharge Plan - Plan Referrals: Huy Graham MD [Partnered Physician] - 10/28/18 3:30 pm Deng Munoz Jr, MD [Primary Care Provider] - 10/07/18 11:30 am (1) Syncope Qualifiers: Syncope type: vasovagal syncope Qualified Code(s): R55 - Syncope and collapse (2) Sepsis Qualifiers: Sepsis type: sepsis due to unspecified organism Qualified Code(s): A41.9 - Sepsis, unspecified organism (4) HTN (hypertension) Qualifiers: Hypertension type: essential hypertension Qualified Code(s): I10 - Essential (primary) hypertension (5) HLD (hyperlipidemia) Qualifiers: Hyperlipidemia type: unspecified Qualified Code(s): E78.5 - Hyperlipidemia, unspecified
[2018-09-25] MEDS: Piperacillin/Tazobactam 3.375 GM in 0.9 % Sodium Chloride Mini Bag 100 ML IVPB SCH ×3 (03:41→19:47)
[2018-09-25] MEDS: *HR* HYDROcodone/Acet 5/325 mg TABLET PO PRN (03:46)
[2018-09-25 05:33] LABS: Basophils % 0.1 %; Hematocrit 28.7 % (35.3-44.9); Hemoglobin 9.4 g/dL (11.5-15.4); Immature Granulocytes % 0.7 % (0-4); Lymphocytes # 0.7 K/mcL (0.6-4.6); Lymphocytes % 5.2 %; Mean Corpuscular HGB Conc 32.8 g/dL (31.6-35.5); Mean Corpuscular Hemoglobin 28.9 pg (28.0-33.3); Mean Corpuscular Volume 88.3 fL (83.0-100.0); Mean Platelet Volume 9.1 fL (9.4-12.4); Monocytes # 0.9 K/mcL (0.0-1.3); Monocytes % 6.5 %; Neutrophils # 12.1 K/mcL (1.6-8.9); Platelet Count 222 K/mcL (140-400); Red Blood Count 3.25 M/mcL (3.82-4.97); Red Cell Distribution Width 12.9 % (11.5-14.5); Segmented Neutrophils % 87.5 %
[2018-09-25 05:54] LABS: BUN/Creatinine Ratio 23 (6-26); Blood Urea Nitrogen 22 mg/dL (8-23); Calcium 8.5 mg/dL (8.6-10.3); Carbon Dioxide 20 mEq/L (23-29); Chloride 107 mEq/L (98-107); Glucose 133 mg/dL (70-105); Osmolality,Calculated 289 (280-300); Potassium 3.8 mEq/L (3.5-5.1); Sodium 137 mEq/L (136-145); eGFR For Non-African Americans 55 (> 60)
[2018-09-25] MEDS: Aspirin Enteric Coated 81 MG Tablet PO SCH (08:05)
--- NOTE | 2018-09-25 08:33 | Vascular/Endovas Progress Note ---
Date of Encounter: 09/25/18 Time of Encounter: 08:15 - Assessment and plan (1) Postoperative seroma Current Visit: Yes Status: Chronic The patient is postoperative day #1 after incision and drainage of a left groin seroma. The fluid was consistent with a postoeprative expected seroma. There was no evidence of infection. Routine wound care was discussed with the patient. She may follow-up in clinic after discharge. 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 Her endograft is patent by CT scan. 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 Qualifiers: Presence of rupture: without rupture Qualified Code(s): I71.4 - Abdominal aortic aneurysm, without rupture (3) Hypertension, essential Current Visit: No Status: Chronic The patient was counseled regarding atherosclerotic risk factor reduction. (4) Hyperlipemia, mixed Current Visit: No Status: Chronic (5) Chronic kidney disease, stage 3 Current Visit: No Status: Chronic - Subjective Procedure(s) Performed: Incision and drainage of left groin seroma. Interval history: The patient is alert and comfortable. She reports adequate pain control. She denies fevers or chills. She denies chest pain or shortness of breath. Vital Signs, Last 4 Hours Temp Pulse Resp BP Pulse Ox 09/25/18 07:26 98.6 F 67 16 150/65 94 - Physical Examination General: Present: Conversant, No Apparent Distress HEENT: Present: Pupils equal Cardiac: Present: Reg Rate and Rhythm Lungs: Present: Normal Breath Sounds Neuro: Present: Alert and responsive, No focal deficits noted Vascular: Present: Normal capillary refill, Surgical incisions (left groin incsision clean, dry and intact without erythema or drainage). Absent: Cyanosis, Edema Abdomen: Present: Soft, Non-tender - VTE Reasons for not Prescribing Prophylaxis: Treatment not Indicated - Low risk for VTE Results 09/25/18 05:18 09/25/18 05:18 Lab Results, Last 24 hours 09/25/18 09/25/18 05:18 05:18 WBC 13.8 H Hgb 9.4 L Hct 28.7 L Plt Count 222 Sodium 137 Potassium 3.8 Chloride 107 Carbon Dioxide 20 L BUN 22 Creatinine 0.96 Glucose 133 H Calcium 8.5 L Consult Discharge Plan - Plan Referrals: Huy Graham MD [Partnered Physician] - 10/28/18 3:30 pm Deng Munoz Jr, MD [Primary Care Provider] - 10/07/18 11:30 am
--- NOTE | 2018-09-25 10:32 | Infectious Disease Progress No ---
Date of Encounter: 09/25/18 Time of Encounter: 08:50 - Assessment and Plan (1) Sepsis Current Visit: Yes Status: Suspected The patient had two SIRS criteria on admission. Etiology unclear: infected seroma vs. other. Improved clinically. WBC trending down. Afebrile overnight. Blood cultures drawn 09/23/18 are NGTD x 2 sets. Recommendations: - Wound care per the Vascular team. - Continue Vancomycin IV. Pharmacy to dose. Goal trough ~15. - Continue Zosyn 3.375 grams IV Q8H. - Duration of treatment depends on the clinical picture. - Monitor renal function and for drug toxicity and dose-adjust antibiotics. Qualifiers: Sepsis type: sepsis due to unspecified organism Qualified Code(s): A41.9 - Sepsis, unspecified organism (2) Postoperative seroma Current Visit: Yes Status: Chronic Location: Left groin. Likely secondary to recent AAA repair. CTA of the abdomen and pelvis showed "status post endovascular repair of the abd ominal aorta. Aneurysm sac is stable since May 2018, measuring up to 5.9 cm. 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 Large fluid collection identified in the left groin which may represent a postoperative seroma, measuring 5.8 x 5.2 cm. No acute intrathoracic abnormality. Diverticulosis." Vascular surgery consulted. Status post I & D of the left groin seroma 09/24/[address] Graham. Operative note reviewed. Serous fluid noted, no pus. It does not appear that cultures were collected. Qualifiers: Surgical complication system/body Area: circulatory system Procedure type: other circulatory Qualified Code(s): I97.648 - Postprocedural seroma of a circulatory system organ or structure following other circulatory system procedure (3) Endoleak of aortic graft Current Visit: Yes Status: Acute CTA of the abdomen and pelvis showed a type 2 endoleak arising from the middle s acral artery and possibly the right L5 lumbar artery. Vascular surgery consulted and following. No indication for intervention at this time per Vascular. (4) AAA (abdominal aortic aneurysm) Current Visit: No Status: Chronic Status post endovascular repair of AAA 07/10/[address] Graham. Qualifiers: Presence of rupture: without rupture Qualified Code(s): I71.4 - Abdominal aortic aneurysm, without rupture (5) Chronic kidney disease, stage 3 Current Visit: No Status: Chronic Continue to trend renal function and dose-adjust antibiotics. Avoid nephrotoxins as able. - Subjective Interval history: Patient seen and examined. No acute events noted overnight. Patient states overall she feels well. Denies fevers, chills, or rigors. Denies shortness of breath, but does report a dry cough and an episode of chest pain overnight that resolved spontaneously. Denies nausea, vomiting, or diarrhea. Denies abdominal pain or urinary complaints. Denies oral thrush or new skin lesions. States her appetite is good. Last BM this morning. Reports mild discomfort at the surgical site. Infect Dis PN-Objective Data - Labs CBC & Chem 7: 09/26/18 08:32 09/26/18 08:32 Labs: Laboratory Results - last 24 hr 09/25/18 09/25/18 05:18 05:18 WBC 13.8 H RBC 3.25 L Hgb 9.4 L Hct 28.7 L MCV 88.3 MCH 28.9 MCHC 32.8 RDW 12.9 Plt Count 222 MPV 9.1 L Immature Gran % 0.7 Seg Neutrophils % 87.5 Lymphocytes % 5.2 Monocytes % 6.5 Eosinophils % 0.0 Basophils % 0.1 Neutrophils # 12.1 H Lymphocytes # 0.7 Monocytes # 0.9 Eosinophils # 0.0 Basophils # 0.0 Sodium 137 Potassium 3.8 Chloride 107 Carbon Dioxide 20 L BUN 22 Creatinine 0.96 Est GFR ( Amer) > 60 Est GFR (Non-Af Amer) 55 L BUN/Creatinine Ratio 23 Glucose 133 H Calculated Osmolality 289 Calcium 8.5 L Cultures: Cultures 09/23/18 11:49 Blood Culture - Preliminary Peripheral Venipuncture Culture is incubating and being continuously monitored for growth. Final report to follow. 09/23/18 11:49 Blood Culture - Preliminary Peripheral Venipuncture Culture is incubating and being continuously monitored for growth. Final report to follow. Serology 09/23/18 Range/Units 14:20 Urine Color Yellow (Yellow) Urine Clarity Clear (Clear) Urine pH 6.5 (5.0-8.0) pH Units Ur Specific [place] 1.029 H (1.010-1.025) Urine Protein 30 H (Neg-Trace) mg/dL Urine Glucose (UA) Normal (Normal) mg/dL Urine Ketones Trace H (Negative) mg/dL Urine Blood Trace H (Negative) Urine Nitrite Negative (Negative) Urine Bilirubin Negative (Negative) Urine Urobilinogen Normal (Normal) mg/dL Ur Leukocyte Esterase Moderate H (Negative) Urine Microscopic RBC 5-15 H (0-3) per hpf Urine Microscopic WBC 5-15 H (0-3) per hpf Ur Squamous Epith Cells Many H (None-Few) per lpf Urine Bacteria Few (None-Few) per hpf Hyaline Casts None Seen (None-Few) per lpf Ur Culture Indicated? NO. A (NO) Exam - Constitutional Vitals: Temp Pulse Resp BP Pulse Ox 98.6 F 67 16 150/65 94 09/25/18 07:26 09/25/18 07:26 09/25/18 07:26 09/25/18 07:26 09/25/18 07:26 General appearance: average body habitus, cooperative, no acute distress - Head Head exam: Present: atraumatic, normal inspection, normocephalic - Eye Eye exam: Present: EOMI, normal appearance, PERRL Pupils: Present: normal accommodation - ENT ENT exam: Present: mucous membranes moist - Neck Neck exam: Present: normal inspection - Respiratory Respiratory exam: Present: CTAB. Absent: rales, respiratory distress, rhonchi, wheezes - Cardiovascular Cardiovascular exam: Present: RRR, +S1, +S2 - GI/Abdominal GI/Abdominal exam: Present: normal bowel sounds, soft. Absent: distended, tenderness - Extremities Exam Extremities exam: Present: normal inspection. Absent: joint swelling, pedal edema, tenderness - Back Exam Back exam: Present: normal inspection - Neurological Exam Neurological exam: Present: alert, oriented X3, no focal deficits - Psychiatric Psychiatric exam: Present: normal affect, normal mood - Skin Skin exam: Present: dry, intact, normal color, warm - Additional findings Additional findings: Left groin site dressing C/D/I. No erythema, warmth, or tenderness noted. - VTE Reasons for not Prescribing Prophylaxis: Treatment not Indicated - Low risk for VTE Consult Discharge Plan - Plan Referrals: Huy Graham MD [Partnered Physician] - 10/28/18 3:30 pm Deng Munoz Jr, MD [Primary Care Provider] - 10/07/18 11:30 am - Attending Attestation I examined this patient and my medical decision-making was reviewed with the Resident Physician. I agree with the documented findings, disposition and treatment plan as described except to the extent set forth below.
[2018-09-25] MEDS: Ondansetron ODT 4 MG TAB.RAPDIS SL PRN (18:29)
[2018-09-25] MEDS: 0.9 % Sodium Chloride 1,000 ML IVC SCH (19:48)
--- NOTE | 2018-09-25 21:40 | Internal Med Progress Note ---
Hospitalist Progress Note - Encounter Date of Encounter: 09/25/18 Time of Encounter: 16:00 - Subjective Interval History: SUBJECTIVE: The patient had incision and drainage of left groin area seroma. She does not have any significant pain there. Denies chest pain and difficulty breathing. Denies coughing and wheezing. Denies abdominal pain, nausea and vomiting. She does not have any urinary symptoms. OBJECTIVE: She is afebrile. Skin: Free of rash and discoloration. ENMT: Oral/pharyngeal mucosa is normal in appearance. Eyes: Sclera is white. There is no discharge from eyes. Respiratory: Normal breath sounds; no crackles or wheezes. CV: Heart is regular; no gallop or murmur. GI: Abdomen is soft and not tender. There is no palpable mass or visceromegaly. Neuro: There is no focal deficits. ADDITIONAL DATA: WBCs at 13.8 thousand; 18.2 thousand yesterday. Hemoglobin is 9.4; 11.0 at admission. She has normal electrolytes. Creatinine is 0.96 with a GFR of 55. ASSESSMENT AND PLAN: Syncope. Likely vasovagal. Triggered by a few episodes of vomiting. She had a fever, vomiting and leukocytosis on the day of admission. Seroma in the left groin area. Secondary to endovascular treatment of AAA. Incision and drainage has been done. The culture of the fluid is pending. Hypertension. Under control. We will continue Lopressor and Zestril. Hyperlipidemia. We will continue Lipitor. - Exam Vitals: Temp Pulse Resp BP Pulse Ox 98.6 F 72 18 159/70 93 09/25/18 18:48 09/25/18 18:48 09/25/18 18:48 09/25/18 18:48 09/25/18 18:48 Exam: xx - Assessment and Plan (1) Syncope Current Visit: No Status: Acute (2) Sepsis Current Visit: Yes Status: Suspected (3) Seroma after procedure Current Visit: Yes Status: Acute (4) HTN (hypertension) Current Visit: Yes Status: Chronic (5) HLD (hyperlipidemia) Current Visit: Yes Status: Acute - Time Spent with Patient Total time spent is greater than 50% in coordination of care (as documented) at patient's floor/unit and/or counseling patient: 25 - 35 minutes Plan of Care Discussed with: patient Internal Medicine: Result - Labs CBC & Chem 7: 11/08/18 05:18 09/25/18 05:18 Labs: Short CBC 09/25/18 Range/Units 05:18 WBC 13.8 H (4.3-11.1) K/mcL Hgb 9.4 L (11.5-15.4) g/dL Hct 28.7 L (35.3-44.9) % Plt Count 222 (140-400) K/mcL Neutrophils # 12.1 H (1.6-8.9) K/mcL BMP 09/25/18 05:18 Sodium 137 Potassium 3.8 Chloride 107 Carbon Dioxide 20 L BUN 22 Creatinine 0.96 Glucose 133 H Calcium 8.5 L - ABG Interpretation ABG results: PT/INR, D-dimer PT 12.6 Seconds (9.4-12.1) H 09/23/18 11:49 - VTE Reasons for not Prescribing Prophylaxis: Treatment not Indicated - Low risk for VTE Consult Discharge Plan - Plan Referrals: Huy Graham MD [Partnered Physician] - 10/28/18 3:30 pm Deng Munoz Jr, MD [Primary Care Provider] - 10/07/18 11:30 am (1) Syncope Qualifiers: Syncope type: vasovagal syncope Qualified Code(s): R55 - Syncope and collapse (2) Sepsis Qualifiers: Sepsis type: sepsis due to unspecified organism Qualified Code(s): A41.9 - Sepsis, unspecified organism (4) HTN (hypertension) Qualifiers: Hypertension type: essential hypertension Qualified Code(s): I10 - Essential (primary) hypertension (5) HLD (hyperlipidemia) Qualifiers: Hyperlipidemia type: unspecified Qualified Code(s): E78.5 - Hyperlipidemia, unspecified
[2018-09-26] MEDS: Piperacillin/Tazobactam 3.375 GM in 0.9 % Sodium Chloride Mini Bag 100 ML IVPB SCH ×2 (03:16→12:36)
[2018-09-26] MEDS: Aspirin Enteric Coated 81 MG Tablet PO SCH (07:39)
[2018-09-26] MEDS: Ondansetron ODT 4 MG TAB.RAPDIS SL PRN (09:42)
[2018-09-26 09:43] LABS: Basophils % 0.2 %; Eosinophils # 0.4 K/mcL (0.0-0.6); Eosinophils % 2.7 %; Hematocrit 29.9 % (35.3-44.9); Hemoglobin 9.6 g/dL (11.5-15.4); Immature Granulocytes % 0.3 % (0-4); Lymphocytes # 2.1 K/mcL (0.6-4.6); Lymphocytes % 16.4 %; Mean Corpuscular HGB Conc 32.1 g/dL (31.6-35.5); Mean Corpuscular Hemoglobin 28.9 pg (28.0-33.3); Mean Corpuscular Volume 90.1 fL (83.0-100.0); Mean Platelet Volume 9.6 fL (9.4-12.4); Monocytes # 1.3 K/mcL (0.0-1.3); Monocytes % 10.1 %; Platelet Count 293 K/mcL (140-400); Red Blood Count 3.32 M/mcL (3.82-4.97); Red Cell Distribution Width 13.2 % (11.5-14.5); Segmented Neutrophils % 70.3 %
[2018-09-26 09:55] LABS: Calcium 8.5 mg/dL (8.6-10.3); Potassium 3.7 mEq/L (3.5-5.1)
--- NOTE | 2018-09-26 09:56 | Infectious Disease Progress No ---
Date of Encounter: 09/26/18 Time of Encounter: 09:30 - Assessment and Plan (1) Sepsis Status: Suspected The patient had two SIRS criteria on admission. Etiology unclear: infected seroma vs. other. Improved clinically. WBC trending down. Afebrile overnight. Blood cultures drawn 09/23/18 are NGTD x 2 sets. Recommendations: - Wound care per the Vascular team. - Continue Vancomycin IV. Pharmacy to dose. Goal trough ~15. - Continue Zosyn 3.375 grams IV Q8H. - Duration of treatment depends on the clinical picture. Can transition to PO Augment 875 BID to complete a 7 day post-op course. Treat through 10/01/18. - Monitor renal function and for drug toxicity and dose-adjust antibiotics. Qualifiers: Sepsis type: sepsis due to unspecified organism Qualified Code(s): A41.9 - Sepsis, unspecified organism (2) Postoperative seroma Status: Chronic Location: Left groin. Likely secondary to recent AAA repair. CTA of the abdomen and pelvis showed "status post endovascular repair of the abdominal aorta. Aneurysm sac is stable since May 2018, measuring up to 5.9 cm. 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 Large fluid collection identified in the left groin which may represent a postoperative seroma, measuring 5.8 x 5.2 cm. No acute intrathoracic abnormality. Diverticulosis." Vascular surgery consulted. Status post I & D of the left groin seroma 09/24/[address] Graham. Operative note reviewed. Serous fluid noted, no pus. It does not appear that cultures were collected. Qualifiers: Surgical complication system/body Area: circulatory system Procedure type: other circulatory Qualified Code(s): I97.648 - Postprocedural seroma of a circulatory system organ or structure following other circulatory system procedure (3) Endoleak of aortic graft Status: Acute CTA of the abdomen and pelvis showed a type 2 endoleak arising from the middle sacral artery and possibly the right L5 lumbar artery. Vascular surgery consulted and following. No indication for intervention at this time per Vascular. (4) AAA (abdominal aortic aneurysm) Status: Chronic Status post endovascular repair of AAA 07/10/[address] Graham. Qualifiers: Presence of rupture: without rupture Qualified Code(s): I71.4 - Abdominal aortic aneurysm, without rupture (5) Chronic kidney disease, stage 3 Status: Chronic Continue to trend renal function and dose-adjust antibiotics. Avoid nephrotoxins as able. - Subjective Interval history: Patient seen and examined. No acute events noted overnight. Patient states overall she feels well. Denies fevers, chills, or rigors. Denies shortness of breath, chest pain, or cough. Denies diarrhea, but reports loose stool this morning. Reports one episode of nausea with vomiting last night after dinner. Denies abdominal pain or urinary complaints. Denies oral thrush or new skin lesions. States her appetite is good. Reports mild intermittent discomfort at the surgical site. Infect Dis PN-Objective Data - Labs CBC & Chem 7: 09/26/18 08:32 09/26/18 08:32 Labs: Laboratory Results - last 24 hr 09/26/18 08:32 WBC 12.8 H RBC 3.32 L Hgb 9.6 L Hct 29.9 L MCV 90.1 MCH 28.9 MCHC 32.1 RDW 13.2 Plt Count 293 MPV 9.6 Immature Gran % 0.3 Seg Neutrophils % 70.3 Lymphocytes % 16.4 Monocytes % 10.1 Eosinophils % 2.7 Basophils % 0.2 Neutrophils # 9.0 H Lymphocytes # 2.1 Monocytes # 1.3 Eosinophils # 0.4 Basophils # 0.0 Cultures: Cultures 09/23/18 11:49 Blood Culture - Preliminary Peripheral Venipuncture Culture is incubating and being continuously monitored for growth. Final report to follow. 09/23/18 11:49 Blood Culture - Preliminary Peripheral Venipuncture Culture is incubating and being continuously monitored for growth. Final report to follow. Serology 09/23/18 Range/Units 14:20 Urine Color Yellow (Yellow) Urine Clarity Clear (Clear) Urine pH 6.5 (5.0-8.0) pH Units Ur Specific [place] 1.029 H (1.010-1.025) Urine Protein 30 H (Neg-Trace) mg/dL Urine Glucose (UA) Normal (Normal) mg/dL Urine Ketones Trace H (Negative) mg/dL Urine Blood Trace H (Negative) Urine Nitrite Negative (Negative) Urine Bilirubin Negative (Negative) Urine Urobilinogen Normal (Normal) mg/dL Ur Leukocyte Esterase Moderate H (Negative) Urine Microscopic RBC 5-15 H (0-3) per hpf Urine Microscopic WBC 5-15 H (0-3) per hpf Ur Squamous Epith Cells Many H (None-Few) per lpf Urine Bacteria Few (None-Few) per hpf Hyaline Casts None Seen (None-Few) per lpf Ur Culture Indicated? NO. A (NO) Exam - Constitutional Vitals: Temp Pulse Resp BP Pulse Ox 97.8 F 66 26 176/78 93 09/26/18 07:26 09/26/18 07:26 09/26/18 07:26 09/26/18 07:26 09/26/18 07:26 General appearance: average body habitus, cooperative, no acute distress - Head Head exam: Present: atraumatic, normal inspection, normocephalic - Eye Eye exam: Present: EOMI, normal appearance, PERRL Pupils: Present: normal accommodation - ENT ENT exam: Present: mucous membranes moist - Neck Neck exam: Present: normal inspection - Respiratory Respiratory exam: Present: CTAB. Absent: rales, respiratory distress, rhonchi, wheezes - Cardiovascular Cardiovascular exam: Present: RRR, +S1, +S2 - GI/Abdominal GI/Abdominal exam: Present: normal bowel sounds, soft. Absent: distended, tenderness - Extremities Exam Extremities exam: Present: normal inspection. Absent: joint swelling, pedal e ceci, tenderness - Neurological Exam Neurological exam: Present: alert, oriented X3, no focal deficits - Psychiatric Psychiatric exam: Present: normal affect, normal mood - Skin Skin exam: Present: dry, intact, normal color, warm - Additional findings Additional findings: Left groin surgical site with dressing C/D/I. No erythema, warmth, or tenderness noted. - VTE Reasons for not Prescribing Prophylaxis: Treatment not Indicated - Low risk for VTE Consult Discharge Plan - Plan Instructions: Chronic Hypertension (DC) Additional Instructions: Remove dressing on left groin surgical incision on Saturday, no tub baths or swimming, watch surgical site for signs/symptoms of infection. Referrals: Huy Graham MD [Partnered Physician] - 10/28/18 3:30 pm Deng Munoz Jr, MD [Primary Care Provider] - 10/07/18 11:30 am Prescriptions: Ondansetron ODT [Zofran ODT] 4 mg PO Q4HR PRN #6 tab.rapdis PRN Reason: Nausea And Vomiting Amoxicillin/Clavulanate [Augmentin] 875 mg PO BIDWM 7 Days #14 tablet - Attending Attestation Was discharged before I can see her
[2018-09-26 11:23] VITALS: BP 185/87
--- NOTE | 2018-09-26 14:22 | Discharge Summary ---
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 We admitted her with her symptoms/signs suggesting early sepsis. It was a few hours before this admission when she developed decreased appetite followed by nausea and vomiting. She vomited a few times. Then, she had a syncopal episode. 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 Subsequently, she developed seroma in the area of left groin. We felt that that seroma was infected, as we did not find any other sources for infection. Vascular surgery stepped in. They did incision and drainage of the seroma. They did not obtain cultures. Blood cultures (on 2 occasions) did not grow any organisms. The patient was treated with IV vancomycin/IV Zosyn. Infectious disease was consulted. She had mild grade fever on the day of admission. Then, she was afebrile. One can see WBC of 19.7 thousand at admission; decrease to 12.8 thousand by the time of discharge. She does have mild anemia, chronic. Chest x-ray at admission was normal. UA at admission showed moderate amounts of leukocyte esterase with 5-15 microscopic WBC in sediment. Except of day 1, the patient was basically asymptomatic. CONDITION AT DISCHARGE: The patient feels good. Denies chest pain and difficulty breathing. Denies coughing and wheezing. She has normal appetite. Denies abdominal pain, nausea and vomiting. She has normal urination. She ambulates on her own without difficulties. Skin: Free of rash and discoloration. Respiratory: Normal breath sounds with no crackles and wheezes bilaterally. CV: Heart is regular with no gallop or murmur. GI: Abdomen is flat and soft with no palpable mass or visceromegaly. Neuro exam: There is no focal deficits. Normal speech, swallowing and gait. SEE DISCHARGE ORDERS/MEDICATIONS.. After talking to infectious diseases we decided to send her home on oral Augmentin. She will be taking that antibiotic for the next 7 days. Discharge discussed with: patient, nurse, case management - Time Spent with Patient Total time spent providing and/or coordinating discharge services: Greater than 30 minutes (40 minutes..) - Discharge Medications Prescriptions: Ondansetron ODT [Zofran ODT] 4 mg PO Q4HR PRN #6 tab.rapdis PRN Reason: Nausea And Vomiting Amoxicillin/Clavulanate [Augmentin] 875 mg PO BIDWM 7 Days #14 tablet Home Medications: Atorvastatin [Lipitor] 10 mg PO HS #0 09/03/15 [History] Lisinopril [Zestril] 10 mg PO DAILY 11/14/17 [History] Metoprolol [Lopressor] 25 mg PO BID 11/14/17 [History] Acetaminophen/Diphenhydramine [Acetaminophen Pm Caplet] 1 tab PO HS PRN 07/10/18 [History] Aspirin Enteric Coated [Aspirin EC] 81 mg PO DAILY 07/10/18 [History] Ibuprofen [Motrin] 400 - 600 mg PO Q6HR PRN 07/10/18 [History] Amoxicillin/Clavulanate [Augmentin] 875 mg PO BIDWM 7 Days #14 tablet 09/26/18 [Rx] Ondansetron ODT [Zofran ODT] 4 mg PO Q4HR PRN #6 tab.rapdis 09/26/18 [Rx] Allergies/Adverse Reactions: Allergy/AdvReac Type Severity Reaction Status Date / Time No Known Allergies Allergy Verified 07/10/18 06:37 Date of admission: 09/23/18 16:53 Primary care physician: Deng Munoz Jr, MD Consults: 09/23/18 15:14 Consult to Vascular Surgery [CONS] Stat Consulting Provider: Vascular Surgery Arleen Reason for Consult: post-operative seroma, type 2 endoleak Time Notified: 15:15 Call Completed: Yes 09/23/18 17:06 Consult to Infectious Diseases [CONS] Stat Consulting Provider: Infectious Disease Arleen Reason for Consult: SYMPTOMS/SIGNS OF EARLY/DEVELOPING SEPSIS. LEFT GROIN AREA SEROMA. Time Notified: 16:45 Call Completed: Yes Discharging clinician: Logan Gilliland Anticipated date of discharge: 09/26/18 - Constitutional Vitals: Temp Pulse Resp BP Pulse Ox 97.6 F 66 26 185/87 93 09/26/18 11:22 09/26/18 11:22 09/26/18 11:22 09/26/18 11:22 09/26/18 11:22 General appearance: Present: A&O X 3, no acute distress, answers questions appropriately Exam: xx - Patient Status Disposition: Home, Self-Care Condition: Good - Discharge Instructions Instructions: Chronic Hypertension (DC) Follow Up With: Huy Graham MD [Partnered Physician] - 10/28/18 3:30 pm Deng Munoz Jr, MD [Primary Care Provider] - 10/07/18 11:30 am Additional Instructions: Remove dressing on left groin surgical incision on Saturday, no tub baths or swimming, watch surgical site for signs/symptoms of infection. - Diet and Activity Activity: resume usual activities as tolerated Diet: low fat, low cholesterol - VTE Reasons for not Prescribing Prophylaxis: Treatment not Indicated - Low risk for VTE
== END 2018-09-26 15:30 | disposition home or self-care (01) | DRG 907 ==
LOC: EMEROOARM 11:13 → 2NNU 16:53 → SUATTDRO 16:53 → 2NNU 17:10
PROVIDERS: ADMIT Internal Medicine; ATTEND Internal Medicine

== ENCOUNTER 2019-10-04 16:36 | Inpatient (IN) ==
[2019-10-04 17:39] LABS: Basophils % 0.3 %; Eosinophils # 0.2 K/mcL (0.0-0.6); Eosinophils % 2.3 %; Hematocrit 30.7 % (35.3-44.9); Hemoglobin 9.7 g/dL (11.5-15.4); Immature Granulocytes % 0.3 % (0-4); Lymphocytes # 1.8 K/mcL (0.6-4.6); Lymphocytes % 20.3 %; Mean Corpuscular HGB Conc 31.6 g/dL (31.6-35.5); Mean Corpuscular Hemoglobin 26.7 pg (28.0-33.3); Mean Corpuscular Volume 84.6 fL (83.0-100.0); Mean Platelet Volume 8.8 fL (9.4-12.4); Monocytes # 1.2 K/mcL (0.0-1.3); Monocytes % 12.9 %; Neutrophils # 5.8 K/mcL (1.6-8.9); Platelet Count 278 K/mcL (140-400); Red Blood Count 3.63 M/mcL (3.82-4.97); Red Cell Distribution Width 15.2 % (11.5-14.5); Segmented Neutrophils % 63.9 %; White Blood Count 9.1 K/mcL (4.3-11.1)
[2019-10-04 17:45] LABS: Prothrombin Time 11.8 Seconds (9.4-12.1)
[2019-10-04 18:01] LABS: BUN/Creatinine Ratio 19 (6-26); Blood Urea Nitrogen 21 mg/dL (8-23); Calcium 9.4 mg/dL (8.6-10.3); Carbon Dioxide 25 mEq/L (23-29); Chloride 102 mEq/L (98-107); Glucose 102 mg/dL (70-105); Osmolality,Calculated 285 (280-300); Potassium 3.8 mEq/L (3.5-5.1); Sodium 136 mEq/L (136-145); Troponin I < 0.03 ng/mL (< 0.04); eGFR For African Americans 56 (> 60); eGFR For Non-African Americans 46 (> 60)
[2019-10-04] MEDS ORDERED: Naloxone 0.4 MG/ML INJ IVP PRN (23:29)
[2019-10-05 05:25] LABS: Hematocrit 27.2 % (35.3-44.9); Hemoglobin 8.7 g/dL (11.5-15.4); Mean Corpuscular Hemoglobin 27.1 pg (28.0-33.3); Mean Corpuscular Volume 84.7 fL (83.0-100.0); Mean Platelet Volume 9.5 fL (9.4-12.4); Platelet Count 271 K/mcL (140-400); Red Blood Count 3.21 M/mcL (3.82-4.97); Red Cell Distribution Width 15.3 % (11.5-14.5); White Blood Count 9.4 K/mcL (4.3-11.1)
[2019-10-05 05:44] LABS: Albumin 3.5 g/dL (3.5-5.7); Albumin/Globulin Ratio 0.9 (1.1-2.2); Bilirubin,Total 0.5 mg/dL (0.3-1.0); Calcium 9.2 mg/dL (8.6-10.3); Globulin 3.7 g/dL (2.4-3.5); Magnesium 2.1 mg/dL (1.6-2.6); Phosphorous 3.5 mg/dL (2.7-4.5); Potassium 4.2 mEq/L (3.5-5.1); Total Protein 7.2 g/dL (6.4-8.9); Troponin I 0.03 ng/mL (< 0.04)
[2019-10-05] MEDS: Aspirin Enteric Coated 81 MG Tablet PO SCH (09:26)
[2019-10-05 09:28] LABS: Thyroid Stimulating Hormone 3.218 mcIU/mL (0.340-5.600)
[2019-10-05] MEDS ORDERED: Ondansetron ODT 4 MG TAB.RAPDIS SL PRN (18:57)
[2019-10-06 06:41] LABS: Basophils % 0.2 %; Eosinophils # 0.2 K/mcL (0.0-0.6); Eosinophils % 1.8 %; Hematocrit 27.6 % (35.3-44.9); Hemoglobin 9.1 g/dL (11.5-15.4); Immature Granulocytes % 0.3 % (0-4); Lymphocytes # 2.2 K/mcL (0.6-4.6); Lymphocytes % 22.4 %; Mean Corpuscular Volume 81.9 fL (83.0-100.0); Mean Platelet Volume 9.4 fL (9.4-12.4); Monocytes # 1.3 K/mcL (0.0-1.3); Monocytes % 13.3 %; Neutrophils # 6.1 K/mcL (1.6-8.9); Platelet Count 272 K/mcL (140-400); Red Blood Count 3.37 M/mcL (3.82-4.97); Red Cell Distribution Width 15.5 % (11.5-14.5); White Blood Count 9.8 K/mcL (4.3-11.1)
[2019-10-06 07:02] LABS: BUN/Creatinine Ratio 21 (6-26); Blood Urea Nitrogen 21 mg/dL (8-23); Calcium 9.2 mg/dL (8.6-10.3); Carbon Dioxide 26 mEq/L (23-29); Chloride 105 mEq/L (98-107); Glucose 90 mg/dL (70-105); Osmolality,Calculated 291 (280-300); Potassium 3.7 mEq/L (3.5-5.1); Sodium 139 mEq/L (136-145); eGFR For African Americans > 60 (> 60); eGFR For Non-African Americans 51 (> 60)
[2019-10-06 08:18] LABS: % Iron Saturation 8 % (15-50); Iron 31 mcg/dL (50-170); Transferrin 265 mg/dL (203-362)
[2019-10-06] MEDS: Aspirin Enteric Coated 81 MG Tablet PO SCH (08:35)
[2019-10-06 08:36] LABS: Ferritin 40 ng/mL (10-120)
[2019-10-06] MEDS ORDERED: Lisinopril 20 MG TABLET PO SCH (09:00)
[2019-10-06] MEDS ORDERED: amLODIPine 5 MG TABLET PO SCH (09:00)
[2019-10-06 11:21] VITALS: BP 167/67
== END 2019-10-06 13:14 | disposition home or self-care (01) | DRG 312 ==
LOC: EMEROOARM 16:36 → 3BNU 16:36
PROVIDERS: ADMIT Internal Medicine; ATTEND Internal Medicine

== ENCOUNTER 2020-01-28 06:57 | Inpatient (IN) ==
[2020-01-28 07:26] LABS: Basophils % 0.3 %; Eosinophils # 0.2 K/mcL (0.0-0.6); Eosinophils % 2.1 %; Hematocrit 24.4 % (35.3-44.9); Hemoglobin 7.3 g/dL (11.5-15.4); Immature Granulocytes % 0.3 % (0-4); Lymphocytes # 1.4 K/mcL (0.6-4.6); Lymphocytes % 15.4 %; Mean Corpuscular HGB Conc 29.9 g/dL (31.6-35.5); Mean Corpuscular Hemoglobin 24.1 pg (28.0-33.3); Mean Corpuscular Volume 80.5 fL (83.0-100.0); Mean Platelet Volume 8.6 fL (9.4-12.4); Monocytes # 1.1 K/mcL (0.0-1.3); Monocytes % 12.2 %; Neutrophils # 6.4 K/mcL (1.6-8.9); Platelet Count 285 K/mcL (140-400); Red Blood Count 3.03 M/mcL (3.82-4.97); Red Cell Distribution Width 16.7 % (11.5-14.5); Segmented Neutrophils % 69.7 %; White Blood Count 9.1 K/mcL (4.3-11.1)
[2020-01-28 07:27] LABS: Prothrombin Time 11.9 Seconds (9.4-12.1)
[2020-01-28] MEDS ORDERED: 0.9 % Sodium Chloride 500 ML ONE (07:27)
[2020-01-28] MEDS ORDERED: Heparin 1,000 UNITS/500 mL 500 ML ONE (07:27)
[2020-01-28] MEDS ORDERED: *HR* Midazolam HCl 2 MG/2 ML VIAL IVP ONE (08:34)
[2020-01-28] MEDS ORDERED: *HR* FentaNYL (PF) 100 MCG/2 ML VIAL IVP ONE (08:34)
[2020-01-28] MEDS ORDERED: CeFAZolin 2,000 MG/50 ML BAG IVPB ONE (08:37)
[2020-01-28] MEDS ORDERED: 0.9 % Sodium Chloride 1,000 ML ONE (09:34)
[2020-01-28] MEDS ORDERED: Isovue-300 50ML VIAL IVP ONE (11:19)
[2020-01-28] MEDS ORDERED: Naloxone 0.4 MG/ML INJ IVP PRN ×2 (12:34→12:35)
[2020-01-28] MEDS ORDERED: Ondansetron 4 MG/2 ML VIAL IVP PRN (12:35)
[2020-01-28 13:45] LABS: BUN/Creatinine Ratio 20 (6-26); Blood Urea Nitrogen 20 mg/dL (8-23); Calcium 8.9 mg/dL (8.6-10.3); Carbon Dioxide 26 mEq/L (23-29); Chloride 108 mEq/L (98-107); Glucose 115 mg/dL (70-105); Osmolality,Calculated 292 (280-300); Potassium 4.1 mEq/L (3.5-5.1); Sodium 139 mEq/L (136-145); eGFR For African Americans > 60 (> 60); eGFR For Non-African Americans 51 (> 60)
[2020-01-28] MEDS: amLODIPine 5 MG TABLET PO SCH (13:45)
[2020-01-29 05:10] LABS: Hemoglobin 6.7 g/dL (11.5-15.4)
[2020-01-29] MEDS: amLODIPine 5 MG TABLET PO SCH (07:58)
[2020-01-29] MEDS ORDERED: Aspirin 81 MG TAB.CHEW PO SCH (09:00)
[2020-01-29] MEDS ORDERED: lisinopriL 20 MG TABLET PO SCH (09:00)
[2020-01-29 11:48] VITALS: BP 152/62
[2020-01-29 13:25] LABS: Hematocrit 23.3 % (35.3-44.9); Hemoglobin 7.2 g/dL (11.5-15.4)
== END 2020-01-29 15:53 | disposition home or self-care (01) | DRG 269 ==
LOC: SUATTDRO → INTRAD 06:57 → 3BNU 11:54
PROVIDERS: ADMIT Family Medicine; ATTEND Family Medicine